=== PATIENT | female | born 1945 | race Caucasian/White ===

== ENCOUNTER → 2022-07-21 19:42 | Outpatient (CLI) | payer MEDICARE, OTHER, SELFPAY ==
[2022-07-21 14:24] LABS: Basophils # 0.1 K/mm3 (0-0.2); Basophils % 1.3 % (0.1-2.0); Eosinophils # 0.1 K/mm3 (0.0-0.4); Eosinophils % 1.1 % (0.1-12.0); Hematocrit 44.1 % (37.0-47.0); Hemoglobin 13.5 g/dL (12.2-16.2); Lymphocytes # 1.6 K/mm3 (0.7-4.5); Mean Corpuscular HGB Conc 30.6 g/dL (31.8-35.4); Mean Corpuscular Hemoglobin 26.5 pg (27.0-31.2); Mean Corpuscular Volume 86.7 fl (81-99); Mean Platelet Volume 9.4 fl (7.4-10.4); Monocytes # 0.3 K/mm3 (0.1-1.0); Monocytes % 4.5 % (1.7-9.3); Neutrophils # 4.1 K/mm3 (1.8-7.8); Neutrophils % 67.2 % (37.0-80.0); Platelet Count 320 K/mm3 (142-424); Red Blood Count 5.09 M/mm3 (4.20-5.40); Red Cell Distribution Width 18.5 % (11.5-17.5); White Blood Count 6.1 K/mm3 (4.8-10.8)
[2022-07-21 14:30] LABS: Iron 51 ug/dL (37-170)
[2022-07-21 14:39] LABS: Total Iron Binding Capacity 378 ug/dL (265-497)
[2022-07-21 15:06] LABS: Ferritin 10.7 ng/ml (11.1-264)
== END ==
PROVIDERS: PCP Family Medicine; Visit Provider Family Medicine
DX: E61.1 Iron deficiency (principal); R53.83 Other fatigue
CPT/HCPCS: 82728; 83540; 83550; 85025

== ENCOUNTER → 2022-09-12 14:10 | Outpatient (CLI) | payer MEDICARE, OTHER, SELFPAY | PROVIDERS: PCP Family Medicine; Visit Provider Internal Medicine Pulmonary Disease | DX: G47.33 Obstructive sleep apnea (adult) (pediatric) (principal); R06.83 Snoring | CPT/HCPCS: G0399 ==

== ENCOUNTER → 2023-01-26 23:19 | Outpatient (CLI) | payer MEDICARE, OTHER, SELFPAY ==
[2023-01-26 18:48] LABS: Iron 96 ug/dL (37-170)
[2023-01-26 18:57] LABS: Total Iron Binding Capacity 341 ug/dL (265-497)
[2023-01-26 18:59] LABS: Basophils # 0.1 K/mm3 (0-0.2); Basophils % 0.7 % (0.1-2.0); Eosinophils # 0.2 K/mm3 (0.0-0.4); Eosinophils % 1.7 % (0.1-12.0); Hematocrit 44.3 % (37.0-47.0); Lymphocytes # 2.2 K/mm3 (0.7-4.5); Lymphocytes % 24.6 % (10-50); Mean Corpuscular HGB Conc 31.7 g/dL (31.8-35.4); Mean Corpuscular Hemoglobin 28.5 pg (27.0-31.2); Mean Corpuscular Volume 90.2 fl (81-99); Mean Platelet Volume 9.2 fl (7.4-10.4); Monocytes # 0.4 K/mm3 (0.1-1.0); Monocytes % 4.2 % (1.7-9.3); Neutrophils # 6.1 K/mm3 (1.8-7.8); Neutrophils % 68.8 % (37.0-80.0); Platelet Count 359 K/mm3 (142-424); Red Blood Count 4.92 M/mm3 (4.20-5.40); Red Cell Distribution Width 13.3 % (11.5-17.5); White Blood Count 8.8 K/mm3 (4.8-10.8)
[2023-01-26 19:23] LABS: Ferritin 22.1 ng/ml (11.1-264)
== END ==
PROVIDERS: PCP Family Medicine; Visit Provider Family Medicine
DX: D64.9 Anemia, unspecified (principal)
CPT/HCPCS: 82728; 83540; 83550; 85025

== ENCOUNTER → 2023-04-22 14:36 | Outpatient (CLI) | payer MEDICARE, OTHER, SELFPAY ==
--- NOTE | 2023-04-22 14:37 | CT_ITS ---
FINAL REPORT TECHNIQUE: Axial images were obtained from the lung apex to the mid abdomen by computed tomography. Coronal reformatted images were obtained. This study was performed with techniques to keep radiation doses as low as reasonably achievable, (ALARA). Individualized dose reduction techniques using automated exposure control or adjustment of mA and/or kV according to the patient''s size were employed. CLINICAL HISTORY: Comparison to prior CT chest COMPARISON: None FINDINGS: No prior CT of the chest is available for comparison purposes. There is no axillary adenopathy. There is no hilar or mediastinal adenopathy. Heart size is normal. There is no pericardial or pleural effusion. There are small bilateral noncalcified nodules present, the largest of which is in the right lower lobe and measures 5 mm in size. There is mild biapical scarring present. There is a low-density in the dome of the liver, most likely a small cyst. IMPRESSION: Small bilateral noncalcified nodules present bilaterally, the largest measuring 5 mm. Recommend 6-12 month follow-up CT for further evaluation. Probable small cyst in the liver dome. Reviewed, Interpreted and Dictated by Duane Valderrama III, MD Transcribed by Maria C Guerra Authenticated and [facility]
== END ==
PROVIDERS: PCP Family Medicine; Visit Provider Internal Medicine Pulmonary Disease
DX: R91.8 Other nonspecific abnormal finding of lung field (principal)
CPT/HCPCS: 71250

== ENCOUNTER → 2023-07-20 23:54 | Outpatient (CLI) | payer MEDICARE, OTHER, SELFPAY | PROVIDERS: PCP Nurse Practitioner; Visit Provider Nurse Practitioner | DX: R30.0 Dysuria (principal); B96.29 Other Escherichia coli [E. coli] as the cause of diseases classified elsewhere | CPT/HCPCS: 87086; 87088; 87186 ==

== ENCOUNTER 2023-11-17 17:53 | Outpatient (CLI) | payer MEDICARE, OTHER, SELFPAY | END 2023-11-17 23:59 | LOC: LAB.DROPOF 17:54 | PROVIDERS: PCP Student in an Organized Health Care Education/Training Program; Visit Provider Student in an Organized Health Care Education/Training Program | DX: R05.9 Cough, unspecified (principal); U07.1 COVID-19 | CPT/HCPCS: 87635 ==

== ENCOUNTER 2024-02-01 19:31 | Outpatient (CLI) | payer MEDICARE, OTHER, SELFPAY ==
[2024-02-01 19:25] LABS: Alanine Aminotransferase 27 U/L (12-78); Albumin Level 4.1 g/dl (3.5-5.0); Albumin/Globulin Ratio 1.7 (1.1-1.8); Alkaline Phosphatase 104 U/L (38-126); Aspartate Amino Transferase 37 U/L (14-36); Bilirubin,Total 0.7 mg/dl (0.2-1.3); Blood Urea Nitrogen 20 mg/dl (7-17); Calcium 9.7 mg/dl (8.4-10.2); Carbon Dioxide 28 mmol/L (22.0-30.0); Chloride 106 mmol/L (98-107); Chol/HDL Ratio 4.4 (1-3.5); Cholesterol 260 mg/dl (140-200); Estimated Glomerular Filt Rate 70 ml/min (>60); GFR (African American) 84 ML/MIN (>60); Globulin 2.4 g/dL (1.3-3.2); Glucose 118 mg/dl (74-100); HDL Cholesterol 59 mg/dl (40-60); Sodium 138 mmol/L (136-145); Total Protein,Serum 6.5 g/dl (6.3-8.2); Triglycerides 129 mg/dl (30-150); VLDL Cholesterol 26 mg/dL (0-40)
[2024-02-01 19:26] LABS: Basophils # 0.1 K/mm3 (0-0.2); Basophils % 1.1 % (0.1-2.0); Eosinophils # 0.1 K/mm3 (0.0-0.4); Hematocrit 45.6 % (37.0-47.0); Hemoglobin 14.8 g/dL (12.2-16.2); Lymphocytes # 1.7 K/mm3 (0.7-4.5); Lymphocytes % 23.7 % (10-50); Mean Corpuscular HGB Conc 32.5 g/dL (31.8-35.4); Mean Corpuscular Hemoglobin 29.8 pg (27.0-31.2); Mean Corpuscular Volume 91.7 fl (81-99); Mean Platelet Volume 9.3 fl (7.4-10.4); Monocytes # 0.3 K/mm3 (0.1-1.0); Monocytes % 3.9 % (1.7-9.3); Neutrophils # 4.9 K/mm3 (1.8-7.8); Neutrophils % 69.3 % (37.0-80.0); Platelet Count 293 K/mm3 (142-424); Red Blood Count 4.97 M/mm3 (4.20-5.40); Red Cell Distribution Width 13.9 % (11.5-17.5); White Blood Count 7.1 K/mm3 (4.8-10.8)
[2024-02-01 19:36] LABS: Direct LDL Cholesterol 128.05 mg/dL (100-129)
[2024-02-01 19:56] LABS: Thyroid Stimulating Hormone 1.12 uIU/mL (0.465-4.68)
== END 2024-02-01 23:59 ==
LOC: LAB.DROPOF 19:32
PROVIDERS: PCP Family Medicine; Visit Provider Family Medicine
DX: E78.5 Hyperlipidemia, unspecified (principal); D64.9 Anemia, unspecified; R53.83 Other fatigue
CPT/HCPCS: 80053; 80061; 84443; 85025

== ENCOUNTER 2025-05-20 09:45 | Emergency (ER) | payer MEDICARE, OTHER, SELFPAY ==
[2025-05-20] VITALS (7 sets, daily range): BP systolic 90–176; BP diastolic 61–79; PULSE 58–70; RESP 16–20; TEMP 36.7–36.8; O2SAT 95–98; BMI 27.4
--- OUTSIDE RECORDS SUMMARY | 2025-05-20 09:53 | XMS_ITS | Data Portability ---
Author Organization [facility] PJ Chisholm DOVER CLOSED Address [address] [place] [address] Care Team Providers Care Equipment Maint Tech Name Role Phone LIZZETTE LI Sales And Marketing Associate CHRISTIE DOLAN Primary Care Provider Assessment No assessment recorded. Plan of Treatment Reminders Order Date Submit Date Provider Last Modified By Organization Details Last Modified Time Details Appointments LEVEL 2 2024 01:45P Erlinda LI MD Not available Not available Not available Lab None recorded. Referral None recorded. Procedures None recorded. Surgeries None recorded. Imaging None recorded. Medication Orders dorzolami de 22.3 mg-timolo l 6.8 mg/mL eye drops 2023 [address] [facility], [address] [address] [address] [facility] [place], [phone], 05/04/2024 15:40:38 Patient TargetsNo targets recorded. Patient InstructionsNo instructions recorded. Reason for Referral None Reported. Results Created Date Observation Date Name Description Value Unit Range Abnormal Flag Note LastModifiedBy Organization Detail LastModifiedTime 12/07/1912/07/2024 visua l field test No observ ation record ed. BARCODE Not Available 2024 15:35:59 Result Notes None recorded. 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 Procedures Surgical History Date Name Laterality Status Provider Name and Address Organization Details Recorded Time 12/07/19 25 Visual Field Extended completed LIZZETTE LI MD [address] [place] [address], [phone], [facility] 12/07/2024 14:21:34 05/03/20 24 Cataract Extraction - Brijesh completed LIZZETTE LI MD [address] [place] [address], [phone], [facility] 05/03/2024 09:16:50 05/03/20 24 Cataract (right) removal with iol completed Sarah Parmar [facility] 05/04/2024 13:06:17 04/26/20 24 Cataract Extraction - Brijesh completed LIZZETTE LI MD [address] [place] [address], [phone], [facility] 04/26/2024 09:11:53 04/26/20 24 Cataract (left) removal with iol completed Ligia Sparrow [facility] 04/27/2024 13:30:15 03/18/20 24 OCT/Nerve completed Kika Avalos [facility] 03/18/2024 14:33:50 03/18/20 24 Axial Length, IOL Master completed LIZZETTE LI MD [address] [place] [address], [phone], [facility] 03/18/2024 15:16:30 09/18/20 23 Visual Field Extended completed LIZZETTE LI MD [address] [place] [address], [phone], [facility] 09/18/2023 15:14:28 03/09/20 23 OCT/Nerve completed LIZZETTE LI MD [address] [place] [address], [phone], [facility] 03/09/2023 15:40:49 09/10/20 22 Visual Field Extended completed LIZZETTE LI MD [address] [place] [address], [phone], [facility] 09/10/2022 15:06:44 03/10/20 22 OCT/Nerve completed LIZZETTE LI MD [address] [place] [address], [phone], [facility] 03/10/2022 15:13:08 05/01/20 21 Gonioscopy completed LIZZETTE LI MD [address] [place] [address], [phone], [facility] 05/01/2021 11:20:14 05/01/20 21 Visual Field Extended completed LIZZETTE LI MD [address] [place] [address], [phone], [facility] 05/01/2021 11:19:51 02/23/20 21 OCT/Nerve completed LIZZETTE LI MD [address] [place] [address], [phone], [facility] 02/22/2021 14:48:33 02/23/20 21 Pachymetry completed LIZZETTE LI MD [address] [place] [address], [phone], [facility] 02/22/2021 14:47:38 Imaging Results None recorded. Procedure Notes None recorded. Medical Equipment None Reported. Allergies No known drug allergies Medications Name Sig Start Date Stop Date Status Note LastModified by Organization Details LastModified Time amoxicillin 500 mg capsule TAKE 1 CAPSULE BY MOUTH THREE TIMES DAILY 03/09 completed Not Available Not Available Not Available latanoprost 0.005 % eye drops INSTILL 1 DROP INTO BOTH EYES EVERY EVENING active Not Available Not Available No t Available ciprofloxac in 500 mg tablet TAKE ONE TABLET BY MOUTH TWICE DAILY FOR 7 DAYS -- FINISH ALL MEDICINE -- 09/18 completed Not Available Not Available Not Available prednisolon e acetate 1 % eye drops,suspe nsion INSTILL 1 DROP INTO LEFT EYE 4 TIMES DAILY FOR 1 WEEK THEN FOLLOW INSTRUCTI ON SHEET PROVIDED active Not Available Not Available No t Available pantoprazol e 40 mg tablet,david yed release TAKE ONE TABLET BY MOUTH EVERY DAY active Not Available Not Available No t Available triamcinolo ne acetonide 0.1 % topical ointment 03/09 completed Not Available Not Available Not Available dorzolamide 22.3 mg-timolol 6.8 mg/mL eye drops INSTILL ONE DROP IN EACH EYE TWICE DAILY DIRECTED active Not Available Not Available No t Available moxifloxaci n 0.5 % eye drops INSTILL 1 DROP INTO LEFT EYE 4 TIMES A DAY FOR 1 WEEK, THEN STOP active Not Available Not Available No t Available FeroSul 325 mg (65 mg iron) tablet active Not Available Not Available Not Available diflupredna te 0.05 % eye drops INSTILL 1 DROP INTO LEFT EYE 4 TIMES A DAY FOR 1 WEEK, THEN FOLLOW INSTRUCTI ON SHEET PROVIDED 05/04 completed Not Available Not Available Not Available Vitals Date Recorded Body height Provider Name an d Address Organization Details Last Updated DateTime 12/07/2024 160.02 cm Geetha Vivasez [facility] 0 12/07/2024 13:49:49 Date Recorded Body height Provider Name an d Address Organization Details Last Updated DateTime 05/06/2024 160.02 cm Ligia Sparrow [facility] 05/06/2024 11:09:30 Date Recorded Body height Provider Name an d Address Organization Details Last Updated DateTime 06/06/2024 160.02 cm Lizzette Manjarrez [facility] Cli jose 06/06/2024 13:00:27 Social History None recorded. Functional Status None recorded. Mental Status None recorded. Family History Relationship Description Onset Age of this Age Resolved Age Notes LastModified by Organization Details LastModified Time Father No current problems or disability [email or web address] Not available 02/22 13:40:44 Mother No current problems or disability [email or web address] Not available 02/22 13:40:44 Sister Glaucoma [email or web address] Not availabl e 09/02/2021 14:50:41 Medical History Condition Response Glaucoma Y Diabetic Eye Disease N Lazy Eye N Diabetes N Eye Trauma N Double Vision N Age-related Macular Degeneration N RD/retinal tear N Ocular trauma N Cataract Y Glasses/Contacts Y Gynecological HistoryNo gynecological history recorded. Obstetrics History GPAL:G 0 P 0 0 0 0 Past Encounters Encounter ID Performer Location Encounter Start Date Encounter Closed Date Diagnosis/Indication Diagnosis SNOMED-CT Code Diagnosis ICD10 Code Diagnosis Note [id number] [facility] [address] 02/09/2017 22:58:38 02/09/2017 22:58:38 [id number] LIZZETTE LI MD [facility] [place] [address] [id number] [place], [place] [address] 02/22/2021 13:10:27 02/22/2021 17:10:52 Incipient senile cataract 368225838 H25.099 fill mr Primary op en angle glaucoma 89040675 H40.1132 suspect highly given thin ks and rnfl thinning. 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 [id number] MD BANDAR [facility]GAS [address] [place], [place] [address] 09/02/2021 13:40:16 09/02/2021 16:16:25 Primary open angle glaucoma 34879368 H40.1132 iop excellentc ontinue latanopros t qhsno si/sx int angle closure6 mo complete, rnfl lastiop improved with latanopros t - continuego nio shows slight angle narrowing - discussed - pt has no hx of angle closure symptoms - obs for nowconside r ce in future if worsening of blurred visionhvf with sup defect os4 mo iop check. [id number] LIZZETTE LI MD OPHTHALMKady [place] [address] [place] [address] 03/10/2022 13:56:39 03/10/2022 15:16:55 Primary open angle glaucoma 68048702 H40.1132 iop great todayconti nue latanopros t qhs ournfl wtih stable severe thinning6 mo iop check, hvf previousio p excellentc ontinue latanopros t qhsno si/sx int angle closure6 mo complete, rnfl lastiop improved with latanopros t - continuego nio shows slight angle narrowing - discussed - pt has no hx of angle closure symptoms - obs for nowconside r ce in future if worsening of blurred visionhvf with sup defect os4 mo iop check. 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 624073325 H40.033 hv ftoday with stable defect osrec continue latanopros t qhs ou today6 mo complete, rnfl Incipient senile cataract 714705917 H25.099 [id number] LIZZETTE LI MD [facility]THALMO [place] [address] TIMA GERMAN,[address] [place] [address] 5 03/09/2023 13:26:33 03/09/2023 15:43:48 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 125143956 H40.033 rnfl today with stable thinning ourec continue latanopros t qhs ou today6 mo iop check, hvf Nuclear sc lerotic cataract 510104447 H25.13 worsening os>odtrial mr today [id number] LIZZETTE LI MD [facility]PHTHALMO [place] [address] [place] [address] 5 09/18/2023 13:31:15 09/18/2023 15:15:49 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 I discussed that the decision to have cataract surgery should be determined by how bad the vision affects the patient in their daily lives. I discussed the option of updating the patients glasses and observatio n. I discussed the procedure and post op requiremen ts and expectatio ns. I discussed the risks including retinal detachment , infection in the eye, vision loss, loss of eye or blindness, swelling, inflammati on, bleeding, glaucoma, need for glasses following the procedure. I told them that this is not every possible risk of the procedure. I answered all of the patients questions. The patient voiced understand ing to me. The patient signed a consent today and i gave them a copy. I asked the patient to call if any problems/q uestions/i ssues were to arise prior to their surgery.go od dilation distance vison discussed will wear readers/bi focals for reading [id number] LIZZETTE LI MD SURGERY SCHEDULE [address] [place] [address] 04/26/2024 07:15:16 04/29/2024 12:12:58 Nuclear sclerotic cataract 191492894 H25.13 previous a/pos>odDi scussed cataracts and cataract surgery. I discussed that the decision to have cataract surgery should be determined by how bad the vision affects the patient in their daily lives. I discussed the option of updating the patients glasses and observatio n. I discussed the procedure and post op requiremen ts and expectatio ns. I discussed the risks including retinal detachment , infection in the eye, vision loss, loss of eye or blindness, swelling, inflammati on, bleeding, glaucoma, need for glasses following the procedure. I told them that this is not every possible risk of the procedure. I answered all of the patients questions. The patient voiced understand ing to me. The patient signed a consent today and i gave them a copy. I asked the patient to call if any problems/q uestions/i ssues were to arise prior to their surgery.go od dilation distance vison discussed will wear readers/bi focals for reading [id number] LIZZETTE LI MD OPHTHALMO LOGY [address] [place] [phone] 04/27/2024 13:26:34 04/27/2024 13:50:35 [id number] LIZZETTE LI MD OPHTHALMO LOGY [address] TIMA GERMAN,[address] [place] [phone] 05/02/2024 14:51:29 05/02/2024 16:14:12 Pseudophakia 24774755 Z96.1 excellenti op few points high- recheck wedcontinu e latanopros t qhs outaper steroid - if still high cut this dose Nuclear sc lerotic cataract 646987480 H25.13 odDiscusse d cataracts and cataract surgery. I discussed that the decision to have cataract surgery should be determined by how bad the vision affects the patient in their daily lives. I discussed the option of updating the patients glasses and observatio n. I discussed the procedure and post op requiremen ts and expectatio ns. I discussed the risks including retinal detachment , infection in the eye, vision loss, loss of eye or blindness, swelling, inflammati on, bleeding, glaucoma, need for glasses following the procedure. I told them that this is not every possible risk of the procedure. I answered all of the patients questions. The patient voiced understand ing to me. The patient signed a consent today and I gave them a copy. I asked the patient to call if any problems/q uestions/i ssues were to arise prior to their surgery.go od dilation distance vison discussed will wear readers/bi focals for reading [id number] LIZZETTE LI MD SURGERY SCHEDULE [address] [place] [address] 05/03/2024 07:18:02 05/05/2024 16:44:51 Nuclear sclerotic cataract 637327141 H25.13 [id number] LIZZETTE LI MD OPHTHALMO LOGAnitra [address] [place] [address] 05/04/2024 12:53:20 05/04/2024 13:21:10 Pseudophakia 49215721 Z96.1 Post op Day one - excellentS tart prednisolo ne taper QID x 1 week, TID x 1 week, BID x 1 week, Qday x 1 week.Start moxifloxac in Qid x 1 weekDrop info sheet and activity precaution sheet given.No bending/li fting, strenuous activities , water in eye, eye rubbing x 1 week.Shiel d x 1 week.Call for problems. Specifical ly changes in vision, pain, floaters.C all for any questions. 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 071282369 H40.033 s/p ce ouiop goodhvf stable6 mo complete, rnfl Pseudophakia 26028504 Z9 6.1 Health Concerns Section Related Observation LastModified by Organization Detai ls LastModified Time None Recorded Concern Status LastModified by Organization Details LastModified Time None Recorded Advance Directives Directive None Recorded Payers Insurance Date Sequence Insurance Name Policy Number Policy Kelley Covered Member ID Kelley Member ID Guarantor Name 12/07/2024 1 [facility] Chiqui Miranda [id number] Chiqui Miranda 09/11/2022 2 [employer] (MEDICARE SUPPLEMENT) Chiqui Miranda [id number] Chiqui Miranda OBGyn Episode No OBEpisode recorded.
--- NOTE | 2025-05-20 10:22 | XR_ITS ---
PROCEDURE INFORMATION: Exam: XR Right Femur Exam date and time: 05/20/2025 10:20 AM Age: 80 years old Clinical indication: Pain; Thigh; Right; Additional info: Knee pain, unable to bear weight, ttp of R ankle TECHNIQUE: Imaging protocol: Radiologic exam of the right femur. Views: 2 views. COMPARISON: No relevant prior studies available. FINDINGS: Bones/joints: No visualized fracture. The trabecular stress markings within the proximal femur are normal. No obvious acetabular fracture. Diaphysis of the femur unremarkable. The osseous structures about the knee are normal. No joint effusion. Soft tissues: Unremarkable. IMPRESSION: No fracture
--- NOTE | 2025-05-20 10:22 | XR_ITS ---
PROCEDURE INFORMATION: Exam: XR Right Knee Exam date and time: 05/20/2025 10:21 AM Age: 80 years old Clinical indication: Pain; Knee; Right; Additional info: Knee pain, unable to bear weight, ttp of R ankle TECHNIQUE: Imaging protocol: Radiologic exam of the right knee. Views: 3 views. COMPARISON: CR XR FEMUR RT 2V 05/20/2025 10:20 AM FINDINGS: Bones/joints: Osseous structures of the knee normal. No fracture. No joint effusion. Soft tissues unremarkable. Soft tissues: See Bones/joints finding. IMPRESSION: Normal knee.
--- NOTE | 2025-05-20 10:22 | XR_ITS ---
PROCEDURE INFORMATION: Exam: XR Right Tibia and Fibula Exam date and time: 05/20/2025 10:23 AM Age: 80 years old Clinical indication: Pain; Lower leg; Right; Additional info: Knee pain, unable to bear weight, ttp of R ankle TECHNIQUE: Imaging protocol: Radiologic exam of the right tibia and fibula. Views: 2 views. COMPARISON: CR Knee R 05/20/2025 10:21 AM FINDINGS: Bones/joints: No erosive changes. No periosteal response. No fracture. No soft tissue calcifications. Medial and lateral malleoli normal. ankle mortise is symmetrical. Hindfoot foot unremarkable. Tibiotalar joint and the subtalar joint normal. Spur formation at the insertion of the plantar aponeurosis. Soft tissues: See Bones/joints finding. IMPRESSION: 1. No acute process. 2. Spur formation at the insertion of the plantar aponeurosis.
--- NOTE | 2025-05-20 10:29 | PC.NURSE ---
pt to RAD @ this time
[2025-05-20] MEDS: ONDANSETRON 4MG ODT 4 MG SL (11:10)
--- NOTE | 2025-05-20 11:21 | CT_ITS ---
PROCEDURE INFORMATION: Exam: CT Right Lower Extremity Without Contrast, Knee Exam date and time: 05/20/2025 11:36 AM Age: 80 years old Clinical indication: Pain; Knee; Right; Additional info: Knee pain, unable to bear weight TECHNIQUE: Imaging protocol: CT of the right lower extremity without contrast was performed. Exam focused on the knee. Radiation optimization: All CT scans at this facility use at least one of these dose optimization techniques: automated exposure control; mA and/or kV adjustment per patient size (includes targeted exams where dose is matched to clinical indication); or iterative reconstruction. COMPARISON: CR Knee R 05/20/2025 10:21 AM FINDINGS: Bones/joints: No acute fracture or dislocation. Small joint effusion. Soft tissues: Normal. IMPRESSION: 1. No acute fracture or dislocation. 2. Small joint effusion.
--- NOTE | 2025-05-20 12:36 | HMH.EDGENADL ---
Discharge Plan Disposition Patient Disposition: Home, Self-Care Condition: Good Prescriptions Prescriptions: New hydrocodone-acetaminophen 5-325 mg tablet 1 tab PO Q8H PRN (Reason: pain) Qty: 12 0RF No Action latanoprost 0.005 % drops See Rx Instructions OP .COMPLEX Rx Instructions: BOTH EYES QD into the eye(s); ascorbic acid (vitamin C) 1,000 mg tablet 1 g PO DAILY cholecalciferol (vitamin D3) [Vitamin D3] 50 mcg (2,000 unit) tablet 50 mcg PO DAILY magnesium citrate 100 mg capsule 100 mg PO DAILY ferrous sulfate [FeroSul] 325 mg (65 mg iron) tablet See Rx Instructions .ROUTE .COMPLEX Qty: 180 3RF Dose Instruction: TAKE 1 TABLET TWICE DAILY Rx Instructions: TAKE 1 TABLET TWICE DAILY pantoprazole 40 mg tablet,delayed release (DR/EC) See Rx Instructions .ROUTE .COMPLEX Qty: 90 0RF Dose Instruction: TAKE 1 TABLET EVERY DAY Rx Instructions: TAKE 1 TABLET EVERY DAY Referrals Follow up/Referrals: Nakul Simeon DO [Staff Physician, Orthopedics] - See instructions Cordell Evans MD [Primary Care Provider, Family Practice] - See instructions Activity Restrictions/Add. Instructions Additional Instructions/Restrictions: You were evaluated in the emergency department today. Please follow-up very closely with orthopedics for reassessment. Take Tylenol and ibuprofen every 4-6 hours at home as needed for pain. Keep your knee brace on for support and use crutches to help limit weightbearing and to support you through walking. You may also choose to use walker at home if you find this easier. I am prescribing a medication to have as needed for severe pain if the Tylenol and ibuprofen are not helping. It is important that you follow-up with orthopedics right away. Return to the emergency department for new or worsening symptoms. Clinical Impressions Clinical Impression: Effusion of right knee Stand Alone Forms Stand Alone Forms: Work/School Release Instructions Patient Instructions: DI for Muscle Strain, DI for Knee Effusion, DI for Knee Pain Print Language Print Language: Ivorian Discharge ED Provider: Lena Miller General Adult HPI General Chief complaint: Extremity Injury, Lower Stated complaint: AO- 05/20 0845am- inj to R leg, cant bare weight Time Seen by Provider: 05/20/25 10:10 Mode of Arrival: Wheelchair Source of Information: Patient and Spouse Description of Symptoms (Recalled from ER Triage Doc. by RN): pt is here for right leg pain x 1 week with no known injury and has gotten worse today after taking a mis step and hearing/feeling a pop. pms intact History of Present Illness HPI narrative: This patient is a 80-year-old female who denies significant past medical history presenting to the emergency department for evaluation with concern for right knee pain. Patient states that she has been having some right thigh pain on the medial aspect of her thigh for about a week that is worse with weightbearing. She denies any known falls or traumatic injury. She states that she stepped off of a step today and felt a pop in her right knee, and since then has had severe right knee pain radiating up into the middle of her right thigh. She is unable to bear weight secondary to severe pain in the right knee. She states that most of the pain is behind the knee. No back pain, numbness, tingling, or other concerns noted. She denies any prior history of lower extremity issues in the past Related Data Home Medications ?Medication ?Instructions ?Recorded ?Confirmed ascorbic acid (vitamin C) 1,000 mg 1 g PO DAILY 08/06/22 05/20/25 tablet cholecalciferol (vitamin D3) 50 50 mcg PO DAILY 08/06/22 05/20/25 mcg (2,000 unit) tablet (Vitamin D3) magnesium citrate 100 mg capsule 100 mg PO DAILY 08/06/22 05/20/25 latanoprost 0.005 % eye drops See Rx Instructions ophthalmic 09/24/22 05/20/25 (eye) .COMPLEX Previous Rx's ?Medication ?Instructions ?Recorded ferrous sulfate 325 mg (65 mg See Rx Instructions .Route 05/02/24 iron) tablet (FeroSul) .COMPLEX #180 tabs pantoprazole 40 mg tablet,delayed See Rx Instructions .Route 02/13/25 release .COMPLEX #90 tabs hydrocodone 5 mg-acetaminophen 325 1 tab PO Q8H PRN pain #12 tabs 05/20/25 mg tablet Allergies Allergy/AdvReac Type Severity Reaction Status Date / Time No Known Allergies Allergy Verified 05/20/25 10:17 [facility] Disclaimer: The information contained in this section may have been updated after the patient was seen, as this information can be updated by other users. 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 ) Travel in the last 8 weeks?: None Have you lived/traveled outside [place] in past 30 days?: No Contact w/someone who lives/traveled outside [place] past 30 days?: No Exposure to someone with infectious disease in past 14 days?: No Do you have a fever (greater than 100.4 F or 38 C)?: No Have you tested positive for COVID-19?: No Exposed to someone with COVID-19 in past 14 days?: No Do you have a sore throat?: No Do you have a cough?: No Do you have any weakness?: No Do you have any diarrhea?: No Are you experiencing any unusual bleeding?: No Do you have any muscle aches/pain?: No Do you have any abdominal pain?: No Are you experiencing loss of taste or smell?: No Other Medical History Have you received the Pneumonia Vaccine: No ROS Obtained: Yes All systems reviewed & no additional complaints except as documented Physical Exam General General appearance: alert and in no apparent distress Head Head exam: atraumatic and normocephalic Eye Eye exam: Present normal appearance, PERRL and EOMI ENT ENT exam: Present normal exam, normal oropharynx, mucous membranes moist and normal external ear exam Neck Neck exam: Present normal inspection, full ROM and trachea midline; Absent tenderness Chest Chest inspection: Present normal inspection and symmetric chest wall rise; Absent tenderness Respiratory Respiratory exam: Present normal lung sounds bilaterally; Absent respiratory distress, wheezes, stridor or accessory muscle use Cardiovascular Cardiovascular exam: Present regular rate and normal rhythm Abdominal Exam Abdominal exam: Present soft; Absent distention, tenderness or guarding Extremities Exam Extremities exam: Present full ROM, tenderness (Medial thigh, right knee) and normal capillary refill; Absent edema or joint swelling Back Exam Back exam: Present normal inspection and full ROM; Absent tenderness Neurological Exam Neurological exam: Present alert, oriented X3 and CN II-XII intact; Absent motor sensory deficit Psychiatric Psychiatric exam: Present normal affect and normal mood Skin Skin exam: Present warm and dry Medical Decision Making Medical Records Medical records reviewed: Yes I reviewed the patient's medical records. Screening: Per USPSTF and CDC recommendations, given the prevalence of disease in our region, it is our hospital?s policy to screen for HIV and viral Hepatitis for all patients aged 18 and over and those with ongoing risk factors. Gary Inquiry Pt receiving controlled substance: Yes Gary was queried for this patient: Yes Risks and benefits of using a controlled substance: were discussed with pt by me Vital Signs: 05/20/25 09:53 05/20/25 09:59 05/20/25 10:01 Temperature 98.1 F Temperature Source Oral Pulse Rate 68 67 Pulse Rate [Left Radial] 69 Respiratory Rate 20 Blood Pressure 176/72 H 155/62 H Blood Pressure [Right Arm] 176/72 H Blood Pressure Mean Blood Pressure Mean [Right Arm] 106 02 Sat by Pulse Oximetry 96 96 98 Oxygen Delivery Method Room Air Room Air Room Air 05/20/25 11:09 05/20/25 11:31 05/20/25 12:04 Temperature Temperature Source Pulse Rate 69 68 58 L Pulse Rate [Left Radial] Respiratory Rate 16 Blood Pressure 90/72 L 112/70 134/61 Blood Pressure [Right Arm] Blood Pressure Mean 78 84 Blood Pressure Mean [Right Arm] 02 Sat by Pulse Oximetry 95 96 96 Oxygen Delivery Method Room Air 05/20/25 13:09 Temperature 98.2 F Temperature Source Pulse Rate 70 Pulse Rate [Left Radial] Respiratory Rate 20 Blood Pressure 128/79 Blood Pressure [Right Arm] Blood Pressure Mean Blood Pressure Mean [Right Arm] 02 Sat by Pulse Oximetry Oxygen Delivery Method Room Air Lab Data Lab results reviewed: Yes I reviewed the patient's lab results. Orders (Tests/Meds): ED MEDICATIONS Discontinued Medications Generic Name Dose Route Start Last Admin Trade Name Freq PRN Reason Stop Dose Admin Ondansetron HCl 4 mg 05/20/25 11:05 05/20/25 11:10 Ondansetron 4mg Odt SL 05/20/25 11:06 4 mg ONCE ONE Administration ORDERS Category Date Time Status CT knee RT wo con Stat Cat Scan 05/20/25 11:21 Completed Femur XR right 2 views [XR femur RT 2V] Stat Exams 05/20/25 10:22 Completed Knee XR right 3 views [XR knee RT 3V] Stat Exams 05/20/25 10:22 Completed Tibia/fibula XR right 2 views [XR tibia fibula RT 2V] Exams 05/20/25 10:22 Completed Stat Medical Decision Narrative: In summary, this patient is a 80-year-old female presenting to the Emergency Department for evaluation of right knee pain. Differential diagnoses considered include but are not limited to fracture, contusion, strain/sprain, ligamentous injury, cartilaginous injury, neurovascular injury. Ruling out the most morbid conditions drove assessment. On exam, the patient has tenderness palpation of the right knee but no redness, warmth, or swelling. No significant joint effusion that would be concerning for septic arthritis. She has no calf pain, redness, or tenderness that would suggest DVT as a cause of symptoms, and this appears to be acutely worse after a mechanical injury so I feel it is likely musculoskeletal. She is neurovascularly intact distally. No open wounds or rashes. Workup included x-rays of the right femur, knee, and tib-fib.. I independently interpreted x-ray prior to the radiologist read and noted no acute fracture. Please see their read for final interpretation. Ultimately given that the patient has severe knee pain with difficulty bearing weight, I am concerned she could have an occult fracture or tibial plateau fracture missed on initial x-ray. Given this, elected to obtain CT of the knee without contrast. I dependently interpreted CT scan prior to radiology read and noted no acute fracture. Patient still has significant knee pain with difficulty bearing weight. It is possible she has cartilaginous versus ligamentous injury versus some other occult fracture. Am not concerned for infection based on exam. She also could have ruptured a Davidson's cyst. Ultimately, I feel that she is appropriate for discharge home with close follow-up with orthopedics. She was offered a knee brace here but declined as she stated that it did not help. She was given crutches to help support ambulation. She was given instructions for close Ortho follow-up, strict return precautions, and she was discharged after all questions were Critical Care Critical Care Time Critical Care Time: No
== END 2025-05-20 13:11 | disposition home or self-care (01) ==
PROVIDERS: Emergency Provider Emergency Medicine; PCP Family Medicine
DX: M25.461 Effusion, right knee (principal); M25.561 Pain in right knee
CPT/HCPCS: 73552; 73562; 73590; 73700; 99284; Q0162

== ENCOUNTER 2025-06-30 15:38 | Outpatient (CLI) | payer MEDICARE, OTHER, SELFPAY ==
--- NOTE | 2025-06-30 16:00 | MR_ITS ---
PROCEDURE INFORMATION: Exam: MR Right Lower Extremity Joint Without Contrast, Knee Exam date and time: 06/30/2025 3:48 PM Age: 80 years old Clinical indication: Pain; Knee; Right; Additional info: Knee pain after fall TECHNIQUE: Imaging protocol: Magnetic resonance imaging of the right lower extremity joint without contrast. Exam focused on the knee. COMPARISON: CT KNEE RT WO CON 05/20/2025 11:36 AM FINDINGS: Bones/joints: Small suprapatellar joint effusion. Mild bone marrow edema involving the medial tibial plateau and medial femoral condyle which could reflect areas of bone marrow contusion. Bursae: Small complex Davidson cyst. Medial meniscus: Increased intrasubstance T2 signal within the posterior horn of the medial meniscus likely due to degenerative changes. No full-thickness tear. Lateral meniscus: Unremarkable. No tear. Anterior cruciate ligament: Unremarkable. No tear. Posterior cruciate ligament: Unremarkable. No tear. Medial capsule and supporting structures: Unremarkable. No tear. Lateral capsule and supporting structures: Unremarkable. No tear. Extensor mechanism of knee: There is mild increased T2 signal around the popliteal tendon which could indicate partial tear. Soft tissues: Unremarkable. IMPRESSION: 1. Increased intrasubstance T2 signal within the posterior horn of the medial meniscus likely due to degenerative changes. No full-thickness tear. 2. Small suprapatellar joint effusion. 3. Small complex Davidson cyst. 4. Mild bone marrow edema involving the medial tibial plateau and medial femoral condyle which could reflect areas of bone marrow contusion. 5. There is mild increased T2 signal around the popliteal tendon which could indicate partial tear.
== END 2025-06-30 23:59 | disposition home or self-care (01) ==
LOC: RAD 15:39
PROVIDERS: PCP Family Medicine; Visit Provider Orthopaedic Surgery
DX: M71.21 Synovial cyst of popliteal space [Baker], right knee (principal); M25.461 Effusion, right knee; M25.561 Pain in right knee; R93.6 Abnormal findings on diagnostic imaging of limbs; W19.XXXA Unspecified fall, initial encounter
CPT/HCPCS: 73721

== ENCOUNTER 2025-07-26 12:00 | Outpatient (CLI) | payer MEDICARE, OTHER, SELFPAY ==
[2025-07-26 15:32] LABS: Hematocrit 42.2 % (37.0-47.0); Hemoglobin 13.2 g/dL (12.2-16.2); Immature Granulocytes % 0.3 %; Mean Corpuscular HGB Conc 31.3 g/dL (31.8-35.4); Mean Corpuscular Hemoglobin 28.1 pg (27.0-31.2); Mean Corpuscular Volume 89.8 fl (81-99); Nucleated Red Blood Cells % 0 %; Platelet Count 285 K/mm3 (142-424); Red Blood Count 4.70 M/mm3 (4.20-5.40); Red Cell Distribution Width-SD 42.9 fL; White Blood Count 5.8 K/mm3 (4.8-10.8)
[2025-07-26 15:57] LABS: Alanine Aminotransferase 20 U/L (12-78); Albumin Level 4.1 g/dl (3.5-5.0); Albumin/Globulin Ratio 1.7 (1.1-1.8); Alkaline Phosphatase 93 U/L (38-126); Anion Gap 10.3 mEq/L (5-15); Aspartate Amino Transferase 27 U/L (14-36); Bilirubin,Total 0.5 mg/dl (0.2-1.3); Blood Urea Nitrogen 22 mg/dl (7-17); Calcium 9.7 mg/dl (8.4-10.2); Carbon Dioxide 30 mmol/L (22.0-30.0); Chloride 103 mmol/L (98-107); Creatinine,Serum 0.80 mg/dl (0.52-1.04); Estimated Glomerular Filt Rate 69 ml/min (>60); GFR (African American) 84 ML/MIN (>60); Globulin 2.4 g/dL (1.3-3.2); Glucose 97 mg/dl (74-100); Potassium 4.3 mmoL/L (3.5-5.1); Sodium 139 mmol/L (136-145); Total Protein,Serum 6.5 g/dl (6.3-8.2)
[2025-07-26 16:26] LABS: Thyroid Stimulating Hormone 1.39 uIU/mL (0.465-4.68)
[2025-07-26 16:46] LABS: Vitamin B12 219 pg/mL (239-931)
[2025-07-26 16:54] LABS: Iron 104 ug/dL (37-170)
[2025-07-26 17:03] LABS: Total Iron Binding Capacity 335 ug/dL (265-497)
== END 2025-07-26 23:59 ==
LOC: LAB.DROPOF 07-27 11:42
PROVIDERS: PCP Nurse Practitioner; Visit Provider Nurse Practitioner
DX: D64.9 Anemia, unspecified (principal); Z11.59 Encounter for screening for other viral diseases
CPT/HCPCS: 80053; 82607; 83540; 83550; 84443; 85025; 87389

== ENCOUNTER 2025-08-09 13:15 | Outpatient (CLI) | payer MEDICARE, OTHER, SELFPAY ==
[2025-08-09] MEDS: SODIUM CHLORIDE 0.9% 10ML SYR (RAD ONLY) 10 ML IV (13:32)
[2025-08-09] MEDS: IOPAMIDOL-370 (76%);100ML BOTTLE 75 ML IV (13:32)
--- NOTE | 2025-08-09 13:45 | CT_ITS ---
FINAL REPORT TECHNIQUE: Routine axial images were obtained from the lung apices to below the diaphragm following IV contrast administration. Individualized dose reduction techniques using automated exposure control or adjustment of the mA and/or kV according to the patient size were employed. CLINICAL HISTORY: lung nodule COMPARISON: 04/22/2023 FINDINGS: The mediastinal vasculature was well-opacified. No significant mediastinal mass or adenopathy. There is a small sliding-type hiatal hernia. No pleural or pericardial effusion is seen. There is a 5 mm noncalcified nodule in the right lower lobe on image 56 of series 2. A second 5 mm noncalcified nodule is seen in the periphery of the right lower lobe also on image 56 of series 2. Findings may be slightly more evident than on the prior exam. Limited images of the upper abdomen demonstrate a benign cyst within the right lobe of the liver measuring 11 mm in greatest dimension. IMPRESSION: 2 noncalcified right lower lobe nodules, slightly more evident than on the prior exam. Recommend 3-month follow-up per Fleischner criteria. Reviewed, Interpreted and Dictated by Uriah Contreras MD Transcribed by Louise Hayes Authenticated and [facility]
== END 2025-08-09 23:59 | disposition home or self-care (01) ==
LOC: RAD 13:17
PROVIDERS: PCP Nurse Practitioner; Visit Provider Nurse Practitioner
DX: R91.8 Other nonspecific abnormal finding of lung field (principal)
CPT/HCPCS: 71260; Q9967

== ENCOUNTER 2025-11-06 13:13 | Outpatient (CLI) | payer MEDICARE, OTHER, SELFPAY ==
[2025-11-06 14:45] LABS: Vitamin B12 809 pg/mL (239-931)
== END 2025-11-06 23:59 | disposition home or self-care (01) ==
LOC: LAB 13:15
PROVIDERS: PCP Nurse Practitioner; Visit Provider Nurse Practitioner
DX: E53.8 Deficiency of other specified B group vitamins (principal)
CPT/HCPCS: 36415; 82607